=== PATIENT | female | born 1950 ===

== ENCOUNTER 2018-03-07 07:32 | Day surgery (SDC) | payer OTHER ==
[2018-02-25 11:16] VITALS: BMI 30.7
--- NOTE | 2018-03-04 23:05 | HP ---
DATE OF EXAM: 03/04/2018BRIEF CLINICAL HISTORY: A 68-year-old female with past medical history significant for diabetes, hypertension, hyperlipidemia, who has a stress test on 03/2017, complaining of a new onset of angina, walks half a block and gets chest pain, has to stop on walking, and chest pain gets better and completely revealed by stop on walking. PAST MEDICAL HISTORY: Significant for diabetes, hypertension, hyperlipidemia, and hypothyroidism. SOCIAL HISTORY: He denies any history of alcohol abuse. CURRENT MEDICATIONS: The patient is taking metformin and Januvia 50/1 g twice a day, insulin , atorvastatin 40 mg daily, aspirin 81 mg daily, Fosamax 70 mg daily, vitamin D2, levothyroxine 125 mcg daily, Victoza 1.8 mg subcutaneus daily, Singulair 10 mg daily, losartan 25 mg, and omeprazole 20 mg daily. ALLERGIES: NO KNOWN DRUG ALLERGIES. RECENT CARDIAC WORKUP FOLLOWS: The patient had a stress test dated 03/23/2017, treadmill walk on 2 minute and 58 seconds, ejection fraction 52%. At that time, nuclear scan was negative. The patient had a echocardiography done on 03/28/2017 that shows ejection fraction of 70% mild MR, mild TR, RV systolic pressure of 45 mmHg. The patient's bilateral carotid duplex on 03/23/2017 that showed bilateral mild 20% to 39% ICA stenosis. REVIEW OF SYSTEMS: As per HPI, negative except for HPI. He has chest pain on exertion, new onset. PHYSICAL EXAMINATION: GENERAL: Height of the patient 5 feet 6 inches, weight of the patient 190 pounds, and body mass index 31 kg/m2. VITAL SIGNS: Temperature afebrile, heart rate 68, blood pressure 130/80. HEENT: PERRLA. Extraocular muscles intact. NECK: Supple. No carotid bruits or thyromegaly. CHEST: Clear to auscultation. HEART: S1 and S2 regular. ABDOMEN: Soft. EXTREMITIES: Clubbing and cyanosis negative. LABORATORY DATA: Blood work are pending. IMPRESSION: New onset of angina, unstable angina, diabetes, hypertension, hyperlipidemia, and obesity. RECOMMENDATIONS: Cardiac catheterization, further recommendations after cardiac catheterization. We will follow with you. New onset of angina is stable, diabetes, hypertension, hyperlipidemia, multiple coronary artery disease. The patient is scheduled for cardiac catheterization, further recommendations after cardiac catheterization. We will load with aspirin and Plavix. Reviewed the blood workup when it is available. Further recommendations after cardiac catheterization. Thank you Dr. Chu for providing us the opportunity in taking care of the patient, Holland Skelton. Connie Michelle MD
[2018-03-07 08:49] LABS: INR 1.1; PARTIAL THROMBOPLASTIN TIME 33.5 Seconds (26.9-38.3); PROTHROMBIN TIME 12.4 SECONDS (9.4-12.5)
[2018-03-07 08:50] LABS: BASO # 0.02 K/mm3 (0.0-2.0); BASO % 0.2 % (0.0-3.0); EOS # 0.2 (0.0-0.7); EOS % 2.7 % (1.5-5.0); HEMOGLOBIN 14.4 g/dL (12.0-16.0); LYMPH # 3.1 (1.2-3.4); LYMPH % 38.1 % (22.0-35.0); MEAN CELL VOLUME 91.6 fl (80.0-105.0); MEAN CORPUSCULAR HGB CONC 33.9 g/dl (31.0-37.0); MEAN PLATELET VOLUME 10.4 fl (7.0-11.0); MONO # 0.4 (0.1-0.6); MONO % 4.8 % (1.0-6.0); RBC 4.64 10^6/uL (3.5-6.1); RED CELL DISTRIBUTION WIDTH 14.6 % (11.5-14.5); WHITE BLOOD COUNT 8.3 10^3/uL (4.5-11.0)
[2018-03-07 08:51] LABS: BLOOD UREA NITROGEN 15 mg/dL (7-21); CALCIUM 9.5 mg/dL (8.4-10.5); GFR NON-AFRICAN AMERICAN > 60; HDL CHOLESTEROL 48 mg/dL (29-60)
[2018-03-07 09:02] LABS: LDL CHOLESTEROL 107 mg/dL (0-129)
[2018-03-07] MEDS ORDERED: Nitroglycerin 50mg in D5W 50 MG/250 ML BOTTLE IV ONE (10:12)
[2018-03-07] MEDS ORDERED: Phenylephrine 10 mg/ml Inj ONE (10:12)
[2018-03-07] MEDS ORDERED: Verapamil 2 ML ONE (10:12)
[2018-03-07] MEDS ORDERED: Lidocaine 2% Inj (20ml) ONE (10:13)
[2018-03-07] MEDS ORDERED: Iohexol 350mgl/ml 50 ML ONE (10:14)
[2018-03-07] MEDS ORDERED: Iodixanol 320 MG/ML 100 ML BOTTLE IV ONE (10:14)
[2018-03-07] MEDS ORDERED: Iodixanol 320 MG/ML 200 ML BOTTLE IV ONE (10:14)
[2018-03-07] MEDS ORDERED: Midazolam 2 MG/2 ML VIAL ONE (11:16)
[2018-03-07] MEDS ORDERED: Bacitracin 500 Units/gm Oint Foilpak UD TOP ONE (11:50)
[2018-03-07] MEDS ORDERED: Sodium Chloride 0.9% 1,000 ML IV SCH (12:00)
[2018-03-07 12:18] VITALS: TEMP 98.3
--- NOTE | 2018-03-07 12:35 | CPOSTOP ---
DATE: 03/07/2018 CARDIOVASCULAR LAB POSTPROCEDURE NOTE PHYSICIAN: Dr. Miguel Angel Salcedo. CORRECTIONAL OFFICER CHIEF: MARTHA Smith. TYPE OF ANESTHESIA: Moderate conscious sedation, total 2 mg of Versed and 100 of fentanyl given periodically. Started 1 mg of versed and 50 of fentanyl. PRE-PROCEDURE DIAGNOSIS: Unstable angina. PROCEDURE PERFORMED: Left heart catheterization. FINDINGS: Nonobstructive coronary artery disease, distal LAD diffusely diseased, mild aortic stenosis, peak to peak 20 mmHg gradient. FINAL DIAGNOSES: Nonobstructive coronary artery disease and mild aortic stenosis. POST PROCEDURE CONDITION: The patient's condition is stable. VASCULAR ACCESS SITE: Left radial. CLOSURE DEVICE: TR-band. TOTAL RADIATION DOSE: 6392.0 milligray unit. TOTAL FLUORO TIME: 2.2 minutes. Connie Michelle MD [facility]
--- NOTE | 2018-03-07 13:38 | CARD ---
APPROVED REPORT Date of service: 03/07/2018 Procedure(s) performed: Left Heart Catheterization HISTORY The patient is a 68 year-old female with a history of : diabetes mellitus with insulin treatment , chronic lung disease, tobacco history() : The patient is a former smoker , hypertension , dyslipidemia . INDICATION The indication(s) include : unstable angina , chest pain, dyspnea. CASE TECHNIQUE The patient was brought electively to the Cardiac Catheterization Laboratory in a fasting state and was prepped and draped in a sterile manner. The left wrist was infiltrated with 2% Lidocaine subcutaneous anesthesia. A 6FR [employer] ACC[employer] KIT sheath was inserted into the left radial artery without difficulty. Coronary angiography was performed using coronary diagnostic catheters. The left coronary system was accessed and visualized with a Diagnostic ,6F JL4 CATH DXT 100 CM catheter. The right coronary system was accessed and visualized with a Diagnostic ,6F JR 4 CATH DXT 100 CM catheter. The left ventricle was accessed and visualized with a 6F PIGTAIL 145 CATH DXT 110 CM catheter. Left ventricular/Aortic Valve gradient assessed on pullback. Left ventriculogram was performed in TINEO projection. Closure device was deployed with a Fr TR Band (Large) without any complications. The patient tolerated the procedure well and there were no complications associated with the procedure. Vessel Analysis The patient's coronary anatomy is co-dominant. The left main coronary artery is a medium size vessel without significant stenosis. The left main bifurcates to the left anterior descending and circumflex. The left anterior descending artery is a medium size vessel with diffuse calcification noted throughout this vessel and without significant stenosis. There is a 55% stenosis in the very distal segment. Diffusely diseased, but no focal and flow limiting stanosis. The first diagonal branch is a medium size vessel with diffuse calcification noted throughout this vessel and without significant stenosis. The circumflex artery is a medium size vessel with intimal irregularities and without significant stenosis. The first obtuse marginal branch is a small size vessel with diffuse calcification noted throughout this vessel and without significant stenosis. The second obtuse marginal branch is a medium size vessel with diffuse calcification noted throughout this vessel and without significant stenosis. The left posterior descending artery is a large size vessel with intimal irregularities and without significant stenosis. The right coronary artery is a large size vessel with intimal irregularities and without significant stenosis. The right posterior descending artery is a medium size vessel with intimal irregularities and without significant stenosis. The right posterolateral branch is a medium size vessel with intimal irregularities and without significant stenosis. Left Ventricle The left ventricle is Normal in size with normal contractility. There was no cardiomyopathy. The left ventricular ejection fraction is estimated to be 60-65%. The left ventricular end diastolic pressure is 12 mmHg. 20 mm gradient on pull back peak to peak, c/w mild . Conclusion Mild Non obstructive CAD, limited to Distal LAD Diffusely diseased 55%, but non flow limiting stenosis. Preserved LV FX. EF_60-65%, EDP-12 mmof hg. Mild , 20 mm gradient on pull back peak to peak from LV to Ao. Recommendations Aggressive Medical TherapyCardiac Risk Reduction Program Weight Loss Reduction Program F/u Echo in 1-2 years to monitor . Cc; Nayan Crowder MD
[2018-03-07 13:50] VITALS: RESP 18
[2018-03-07 13:52] VITALS: BP 137/50; PULSE 72; O2SAT 96
[2018-03-07] MEDS ORDERED: Bacitracin 500 Units/gm Oint Foilpak UD ONE (14:09)
== END 2018-03-07 15:00 | disposition home or self-care (01) ==
LOC: CATH 07:32
PROVIDERS: ATTEND Internal Medicine Cardiovascular Disease
DX: I25.10 Atherosclerotic heart disease of native coronary artery without angina pectoris (principal); I35.0 Nonrheumatic aortic (valve) stenosis; E11.9 Type 2 diabetes mellitus without complications; I10 Essential (primary) hypertension; E78.5 Hyperlipidemia, unspecified; E03.9 Hypothyroidism, unspecified; Z87.891 Personal history of nicotine dependence
CPT/HCPCS: 36415; 80048; 80061; 85025; 85610; 85730; 86850; 86900; 93458; 99152; 99153; C1769 ×2; J1644 ×2; J2250; J3010; J7030; Q9967